=== PATIENT | female | born 1970 | race Two or more races ===

== ENCOUNTER 2020-12-27 19:08 | Emergency (ER) | payer SELFPAY ==
[~2020-12-27] VITALS: Ht 172.7 cm; Wt 96.0 kg
[2020-12-27 19:46] VITALS: BP 144/69
[2020-12-27] MEDS ORDERED: LOSARTAN POTASSIUM 100 MG TABLET PO ONE (21:30)
[2020-12-27] MEDS ORDERED: LOSA100T32 MT (21:54)
== END 2020-12-27 22:03 | disposition home or self-care (01) ==
LOC: ER 19:08
DX: R51.9 Headache, unspecified (principal); I10 Essential (primary) hypertension; J45.909 Unspecified asthma, uncomplicated; Z76.0 Encounter for issue of repeat prescription
CPT/HCPCS: 99283